=== PATIENT | male | born 1990 | race American Indian/Alaskan Native ===

== ENCOUNTER 2016-06-29 15:04 | Emergency (ER) | payer SELFPAY ==
[2016-06-29 18:26] LABS: Bilirubin,Urine NEG (Negative); Blood,Urine NEG (Negative); Ketones,Urine NEG (Negative); Leukocyte Esterase,Urine NEG (Negative); Mucus,Urine 1+ /HPF; Nitrite,Urine NEG (Negative); Protein,Urine <15 mg/dL mg/dL (Negative); RBC,Urine < 1.0 /HPF (0.0-6.0); Urobilinogen,Urine < 2.0 mg/dL (<2.0); WBC,Urine < 1.0 /HPF (0.0-6.0)
[2016-06-29 19:38] VITALS: BP 150/92
--- NOTE | 2016-06-29 19:43 | Emergency Department Report ---
Chief Complaint: Skin Rash Stated Complaint: RASH Time Seen by Provider: 06/29/16 19:01 - HPI History of Present Illness: Patient had reported that he has a rash to the head of his penis. He stated that he knew brought her that he did not wash any change to a new soap. He denies any pain but reports itching. Denies painful urination or discharge. He is not concerned about STDs. Denies any abdominal or back pain. Denies any fever or chills. - ROS Review of Systems: All systems are negative unless stated in HPI above. - Exam Vital Signs: Vital Signs 06/29/16 06/29/16 15:23 19:37 Temperature 98.7 F Pulse Rate 74 Respiratory 18 Rate Blood Pressure 147/110 Blood Pressure 150/92 [Left] O2 Sat by Pulse 100 Oximetry Physical Exam: Gen.: This is 25-year-old male well-nourished lump develop in no acute distress. CV: S1, S2. Regular rate and rhythm. Lungs: clear Auscultated bilaterally, no rhonchi wheezes or rales. : No penile lesions. No penile discharge. Noted small erythema area to glans penis. No vesicles. Testicles are normal and no swelling. No lymphadenopathy to groin. MSE screening note: Focused history and physical exam performed. Due to findings the following was ordered:TBD ED Medical Decision Making - Lab Data Lab Results 06/29/16 Range/Units 17:30 Urine Color Yellow (Yellow) Urine Turbidity Clear (Clear) Urine pH 6.0 (5.0-7.0) Ur Specific [place] 1.025 (1.003-1.030) Urine Protein <15 mg/dl (Negative) mg/dL Urine Glucose (UA) >=500 (Negative) mg/dL Urine Ketones Neg (Negative) mg/dL Urine Blood Neg (Negative) Urine Nitrite Neg (Negative) Urine Bilirubin Neg (Negative) Urine Urobilinogen < 2.0 (<2.0) mg/dL Ur Leukocyte Esterase Neg (Negative) Urine WBC (Auto) < 1.0 (0.0-6.0) /HPF Urine RBC (Auto) < 1.0 (0.0-6.0) /HPF Urine Mucus 1+ /HPF ED Disposition for MSE Condition: Stable
== END 2016-06-29 21:09 | disposition left against medical advice (07) ==
LOC: ED 15:04
DX: R21 Rash and other nonspecific skin eruption (principal); Z53.21 Procedure and treatment not carried out due to patient leaving prior to being seen by health care provider
CPT/HCPCS: 81001